=== PATIENT | female | born 1980 | race Caucasian/White ===

== ENCOUNTER → 2020-07-21 | Outpatient (CLI) | payer OTHER ==
[~2020-07-21] MED LIST: BIRTH CONTROL PILLS; CALCIUM 500500 M1; CIPRO 500MG TA500 MG PO; FLAGYL500 MG PO; MAGNESIUM100 MG PO; NORCO 325 MG-7.1 TAB PO
== END ==
LOC: MC.RAD 11:27
DX: Z12.31 Encounter for screening mammogram for malignant neoplasm of breast (principal)